=== PATIENT | male | born 2000 | race Caucasian/White ===

== ENCOUNTER → 2023-12-03 14:08 | Outpatient (REF) | payer BC, SELFPAY | LOC: RAD 14:08 | PROVIDERS: ATTENDING PHYSICIAN Physician Assistant Medical; FAMILY PHYSICIAN Family Medicine | DX: R22.1 Localized swelling, mass and lump, neck (principal) | CPT/HCPCS: 76536 ==

== ENCOUNTER 2024-08-28 19:19 | Emergency (ER) | payer BC, SELFPAY ==
[2024-08-28 19:22] VITALS: BP 136/84
--- NOTE | 2024-08-28 19:54 | ED.SKININJ ---
HPI-Injury
General
Chief Complaint: Eye Problems
Source: patient
Exam Limitations: none
Time Seen by Provider: 08/28/24 19:49
Nursing documentation reviewed up to this point in time: agreed with
History of Present Illness-Injury
Initial Injury comments:
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
their way out the dinner and he told them that his eyes were irritated, they looked in his eyes and according to dad at bedside his pupils were dilated and the whites of his eyes were red. Patient denies change in vision, he states the eyes are
mildly irritated and are improving.
Past History
Past History
ED Past Medical History: None
ED Past Surgical History: None
Social History
Tobacco: Non-smoker
Alcohol: None
Personal: Single
Living: with family
Review of Systems
Review of Systems
Allergies reviewed?: Yes
All Other Systems: ROS reviewed and negative except as documented in HPI and ROS
EENT: Reports other (Mild irritation both eyes)
Phy Exam
Physical Exam
Physical Exam:
GENERAL: No acute distress. A&Ox3.
CONSTITUTIONAL: Afebrile.
EYES: clear, conjunctivae very minimally injected. PERRL.
ENMT: moist mucus membranes, Pharynx nl
RESPIRATORY: Regular respirations, nonlabored, lungs clear.
CARDIOVASCULAR: Regular rate and rhythm, no murmurs, no rubs.
MUSCULOSKELETAL: Moves with ease. Well perfused.
SKIN: Warm, dry, pink
PSYCH: Normal mood and affect. Well kept, interactive and appropriate
NEUROLOGIC: Awake, alert and oriented. No focal neurological deficits
Course
Orders/Labs/Results
Orders:
Orders
08/28/24 19:50
Visual Acuity- Treatment ONCE
Vital Signs
Initial and Last Documented VS:
Initial Vital Signs
Temp Pulse Resp BP Pulse Ox
98 F 81 16 136/84 100
08/28/24 19:22 08/28/24 19:22 08/28/24 19:22 08/28/24 19:22 08/28/24 19:22
Last Documented Vital Signs
Temp Pulse Resp BP Pulse Ox
98 F 81 16 136/84 100
08/28/24 19:22 08/28/24 19:22 08/28/24 19:22 08/28/24 19:22 08/28/24 19:58
MDM/Problems Addressed
Differential Diagnosis Includes:
Welders flash, corneal abrasion, foreign body
MDM/Problems Addressed:
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
their way out the dinner and he told them that his eyes were irritated, they looked in his eyes and according to dad at bedside his pupils were dilated and the whites of his eyes were red. Patient denies change in vision, he states the eyes are
mildly irritated and are improving.
No sensation of foreign body, no suspicion of foreign body or corneal abrasion.
Symptoms are very mild and improving with Welders flash. No treatment indicated at this point. Ibuprofen as needed for discomfort.
Visual acuity is normal
*Pulse Oximetry
SaO2: 100
Oxygen Mode of Delivery: Room air
Patient hypoxic: not evaluated
*Critical Care Note
Total Time (30-74mins, 75-104mins- exclusive of procedures): Not Applicable
ED Attending Note
-
Portions of this chart may have been created with voice recognition software.� Occasional wrong word or��sound alike� substitutions may have occurred due to the inherent limitations of voice recognition software.
Discharge Plan
Departure
Patient Disposition: Home (Routine Discharge)
Date of Disposition: 08/28/24
Time of Disposition: 19:58
Patient with high blood pressure during this ER visit?: No
Condition: Good
Discharge Problem:
[employer]'s flash of both eyes
Referrals:
Asuncion Coleman MD [Active, Ophthalmology] - As needed
Activity Restrictions/Additional Instructions:
As we discussed, Ibuprofen 600 mg (with food) every 6 hours s needed for discomfort.
Get saline eye drops, put in refrigerator and use them frequently as needed for discomfort.
See the eye doctor Friday if you are not 100% better by then
Interventions
Interventions:
*Risk Screen - Suicide Last Done: 08/28/24 19:22
*General Assessment Last Done: 08/28/24 19:22
*Neglect/Abuse Screening Last Done: 08/28/24 20:00
*ED- Fall Risk Assessment Last Done: 08/28/24 20:00
*Nursing Disposition Last Done: 08/28/24 20:21
Discharge Date and Time
Discharge Date/Time: 08/28/24 20:21
Print Language: NEPALI
== END 2024-08-28 20:21 | disposition home or self-care (01) ==
LOC: EMR 19:19
PROVIDERS: EMERGENCY PHYSICIAN Emergency Medicine; FAMILY PHYSICIAN Family Medicine
DX: H16.133 Photokeratitis, bilateral (principal); W89.8XXA Exposure to other man-made visible and ultraviolet light, initial encounter; Y93.89 Activity, other specified
CPT/HCPCS: 99282